=== PATIENT | male | born 2000 | race Caucasian/White ===

== ENCOUNTER 2025-08-25 21:56 | Emergency (ER) | payer OTHER, SELFPAY ==
[2025-08-25 22:02] VITALS: BP 153/91; PULSE 104; RESP 16; TEMP 37.4; O2SAT 99
[2025-08-25 22:26] VITALS: RESP 16; O2SAT 99
--- OUTSIDE RECORDS SUMMARY | 2025-08-26 00:13 | XMS_ITS | Encounter Summary ---
Author Organization [facility] Address [address] [place] [id number] Care Team Providers Care Enterprise Resource Planner Name Role Phone Unavailable Primary Care Provider Unavailabl e Encounter Details Date Type Department Care Team (Late st Contact Info) Description 03/08/2019 Abstract SFL CONVERSION [address] [place] [address] , Generic Conversion, Social History Tobacco Use Types Packs/Day Years Used Date Smoking Tobacco: Never Assessed Sex and Gender Information Value Date Recorded Sex Assigned at Not on file Legal Sex Male 6:00 PM [employer] Gender Identity Not on file Sexual Orientation Not on file documented as of this encounter Plan of Treatment Not on file documented as of this encounter Visit Diagnoses Not on filedocumented in this encounter
--- OUTSIDE RECORDS SUMMARY | 2025-08-26 00:13 | XMS_ITS | Clinical Summary ---
Author Organization [facility] Address [address] [place] [address] Care Team Providers Care Uniform Maker Name Role Phone Aidan Denisse House NP Primary Care Provider Allergies No known active allergies Medications ondansetron ODT (ZOFRAN-ODT) 8 mg disintegrating tablet Take 1 tablet (8 mg total) by mouth every 8 (eight) hours as needed for nausea or vomiting for up to 20 doses 20 tablet Active Active Problems Problem Noted Date Diagnosed Date Adenotonsillar hypertrophy 02/26/2025 Assessment & Plan (03/27/2025 1:23 PM CDT): Continue increased fluids and light activity for two weeks Advance diet as tolerated Miraalax or Milk of Magnesia if no bowel movement in three days Assessment & Plan (02/26/2025 2:40 PM CDT): Plan tonsillectomy and adenoidectomy. - Discussed risks, benefits, and alternatives. Reviewed risks, including anesthesia, pain, bleeding, injury to lips, teeth, gums and tongue, dehydration, scarring, velopharyngeal insufficiency, voice changes, regrowth of tissue. - Reviewed postoperative care: 1-2 weeks off school/daycare, and 2 weeks of light activity and soft diet, with emphasis on fluid hydration, red or purple coloring, straws and dairy are fine to drink. - informational paperwork, including description of surgery, risks, and postop care provided All questions were answered and they would like to proceed. Surgical History Surgery Date Site/Laterality Comments WISDOM TOOTH EXTRACTION Medical History Medical History Date Comments Asthma sports induced a s a child Social History Tobacco Use Types Packs/Day Years Used Date Smoking Tobacco: Never Smokeless Tobacco: Never Tobacco Cessation:Counseling Given: Not Answered AUDIT-C Answer Date Recorded Q1: How often do you have a drink containing alc ohol? Monthly or less 03/24/2025 Q2: How many drinks containi ng alcohol do you have on a typical day when you are drinking? 1 or 2 03/24/2025 Frequency of Binge Drinking Not on file 03/02 Personal Safety Answer Date Recorded Have you ever been in or are you currently in a harmful physical or emotional relationship or is someone making you feel afraid or unsafe? Denies 03/24/2025 Sex and Gender Information Value Date Recorded Sex Assigned at Not on file Legal Sex Male 10:39 AM CDT Gender Identity Not on file Sexual Orientation Not on file Last Filed Vital Signs Vital Sign Reading Time Taken Comments Blood Pressure 137/89 03/24/2025 10:55 AM CDT Pulse 86 03/24/2025 10:55 AM CDT Temperature 36.5 C (97.7 F) 03/24/2025 10:55 AM CDT Respiratory Rate 18 03/24/2025 10:55 AM CDT Oxygen Saturation 96% 03/24/2025 10:55 AM CDT Inhaled Oxygen Concentration - - Weight 96.6 kg (213 lb) 03/27/2025 12:55 PM CDT Height 182.9 cm (6' 0.01) 03/27/2025 12:55 PM C DT Body Mass Index 28.88 03/27/2025 12:55 PM CDT Plan of Treatment Health Maintenance Due Date Last Done Comments Depression Screening 1999 Hepatitis C Screening 1999 HPV Vaccines (1 - Male 3-dose series) 2014 Regular Well Visit/Exam 18-64 2017 Covid-19 Vaccine (3 - season) 2025 12/10/2020, 11/19/2020 Influenza Vaccine (#1) 2025 DTaP/Tdap/Td Vaccine (7 - Td or Tdap) 02/23/2033 02/23/2023, 04/30/2013, 04/08/2003, Additional history exists Hepatitis B Screening Completed 2000 , 1999, 1999 Varicella Vaccines Completed 04/30/2013, 05/11/2003 Pneumococcal vaccine <65 Aged Out No longer eligible based on patient's age to complete this topic Insurance [facility] Care Teams Uniform Maker Relationship Specialty Start Date End Date Denisse Bermudez NP [address] [place] [address] PCP - General Nurse Practitioner 02/19/25
--- NOTE | 2025-08-26 00:25 | ED_ITS ---
[facility] - General Adult General Chief complaint: Unspecified Stated complaint: bat hit him in the head Time Seen by Provider: 08/25/25 23:25 History of Present Illness HPI narrative: 25-year-old male presenting to the ED after being bit/scratched by a bat outside. Patient felt a sharp pain and staying in his left side top of the head after a bat fell down from a tree and landed on his head. Denies any previous rabies exposures or previous immunizations/vaccination. No symptoms at this time. Was otherwise in his normal state of health. Related Data Allergies Allergy/AdvReac Type Severity Reaction Status Date / Time No Known Allergies Allergy Verified 08/25/25 21:57 Review of Systems Review of Systems: As reviewed above in [facility] Social History Social History Smoking status: Never smoker Exam Narrative: GENERAL: [Well-appearing, well-nourished, and in no acute distress.] HEAD: Normocephalic, small pinpoint michael on the top left part of his parietal scalp likely from impact/bat bite/scratch based on history EYES: [PERRLA and EOMI.] ENT: Nares clear, no rhinorrhea or epistaxis. Mucous membranes moist. NECK: Supple. CHEST: [Clear to auscultation. No respiratory distress.] HEART: [Regular rate and rhythm]. No murmur heard. [Normal peripheral pulses.] ABDOMEN: [Soft, nondistended], [nontender], [No rigidity or guarding] EXTREMITIES: Normal range of motion. [No edema.] SKIN: Warm, dry, no rash. NEURO: [No focal deficits]. Alert and oriented [x3.] PSYCH: [Normal mood and affect.] Course Vital Signs Vital signs: Vital Signs Temperature 37.4 C 08/25/25 22:02 Pulse Rate 104 H 08/25/25 22:02 Respiratory Rate 16 08/25/25 22:02 Blood Pressure 153/91 H 08/25/25 22:02 Pulse Oximetry 99 08/25/25 22:02 Oxygen Delivery Room Air 08/25/25 22:02 Temperature 37.4 C 08/25/25 22:02 Pulse Rate 93 08/26/25 01:43 Respiratory Rate 17 08/26/25 01:43 Blood Pressure 147/84 H 11/26/25 01:43 Pulse Oximetry 100 08/26/25 01:43 Oxygen Delivery Room Air 08/25/25 22:02 Medical Decision Making MDM Narrative Medical decision making narrative: 25-year-old male presenting to the ED after being bit/scratched by a bat outside. Patient felt a sharp pain and staying in his left side top of the head after a bat fell down from a tree and landed on his head. Denies any previous rabies exposures or previous immunizations/vaccination. No symptoms at this time. Was otherwise in his normal state of health. Normocephalic, small pinpoint michael on the top left part of his parietal scalp likely from impact/bat bite/scratch based on history. Given exposure to a bat he was given rabies prophylaxis with immunoglobulin and vaccine injection here and we contacted infection control with prescription for days 12/05/13 to be arranged outpatient. Prescription provided. Safe for discharge after meds given. Medical Records Medical records reviewed: Yes I reviewed the external patient's medical records. Vital Signs Vital Signs: Vital Signs Temperature 37.4 C 08/25/25 22:02 Pulse Rate 104 H 08/25/25 22:02 Respiratory Rate 16 08/25/25 22:02 Blood Pressure 153/91 H 08/25/25 22:02 Pulse Oximetry 99 08/25/25 22:02 Oxygen Delivery Room Air 08/25/25 22:02 Temperature 37.4 C 08/25/25 22:02 Pulse Rate 93 08/26/25 01:43 Respiratory Rate 17 08/26/25 01:43 Blood Pressure 147/84 H 08/26/25 01:43 Pulse Oximetry 100 08/26/25 01:43 Oxygen Delivery Room Air 08/25/25 22:02 Discharge Plan Discharge Clinical Impression: Exposure to bat without known bite Patient Disposition: Home Condition: Stable Instructions: Antibiotic Form, Rabies Vaccine (By injection), Rabies Immune Globulin (By injection), Rabies (ED) Additional Instructions: We have provided you the 1st dose of the rabies vaccine and rabies immunoglobulin here. Infection control nurse will be in contact with you for the remaining vaccine series. Return with any emergencies at any time. Patient Language: Upper Sorbian Follow-up/Referrals: Adrian,Trell Washington DO [Primary Care Provider, Unknown] Time of Disposition: 00:30
[2025-08-26] MEDS: RABIES VACCINE (RABAVERT) 2.5 UNITS VIAL IM (01:27)
[2025-08-26 01:29] VITALS: BP 147/84; PULSE 93; RESP 17; O2SAT 100
[2025-08-26] MEDS: RABIES IMMUNE GLOBULIN/PF 900 UNITS/3 ML VIAL 1800 UNITS IM (01:29)
[2025-08-26 01:43] VITALS: BP 147/84; PULSE 93; RESP 17; O2SAT 100
== END 2025-08-26 01:46 | disposition home or self-care (01) ==
PROVIDERS: Emergency Provider Student in an Organized Health Care Education/Training Program; PCP Family Medicine
DX: Z29.14 Encounter for prophylactic rabies immune globulin (principal); W55.89XA Other contact with other mammals, initial encounter
CPT/HCPCS: 90375; 90471; 90472; 90675; 96372; 99283